=== PATIENT | male | born 1980 | race Caucasian/White ===

== ENCOUNTER 2023-03-24 21:50 | Emergency (ER) | payer SELFPAY ==
[~2023-03-24] VITALS: Ht 170.2 cm; Wt 64.0 kg
[2023-03-24] MEDS ORDERED: ONDANSETRON HCL 4MG/2ML INJ IV STA (22:10)
[2023-03-24] MEDS ORDERED: MORPHINE SULFATE 4 MG/ML CPJ (NOT FOR IM USE) IV STA (22:10)
[2023-03-24] MEDS ORDERED: SODIUM CHLORIDE 0.9% 1,000 ML IV ONE (22:15)
[2023-03-24] MEDS ORDERED: SILVER SULFADIAZINE 1% CREAM 25GM TOP ONE (23:00)
[2023-03-25] MEDS ORDERED: ACET-2708 MT
[2023-03-25] MEDS ORDERED: IBUP-1525 MT
[2023-03-25] MEDS ORDERED: GABA-532 MT
[2023-03-25] MEDS ORDERED: SILV20CR13 TP
[2023-03-25 00:15] VITALS: BP 122/73
== END 2023-03-25 00:42 | disposition home or self-care (01) ==
LOC: ER 21:50
DX: T21.21XA Burn of second degree of chest wall, initial encounter (principal); X11.8XXA Contact with other hot tap-water, initial encounter; Y93.89 Activity, other specified; Y92.89 Other specified places as the place of occurrence of the external cause; Y99.8 Other external cause status
CPT/HCPCS: 16020; 96374; 96375; 99284; J2270; J2405; J7030; Z7610; 16000; 96361